=== PATIENT | female | born 1980 | race Caucasian/White ===

== ENCOUNTER 2016-12-31 07:24 | Emergency (ER) | payer SELFPAY ==
[~2016-12-31] VITALS: Ht 160 cm; Wt 70.0 kg
[~2016-12-31 07:24] MED LIST: MELO15TA2 PO
[2016-12-31 07:25] VITALS: BP 121/89; PULSE 63; RESP 16; TEMP 97.6; O2SAT 99
--- NOTE | 2016-12-31 09:36 | PD ---
HPI . blood in urine x 2 weeks Chief Complaint: Complaint Time Seen by Provider: 09:33 Travel History International Travel<30 days: No Contact w/Intl Traveler<30days: No Traveled to known affect area: No History of Present Illness HPI 36 yr old female with anxiety, depression and TIA last year here with c/o seeing blood in her urine and in her panty for 2 weeks. States they are small droplets and bright red in color. She admits to some RLQ pain described as sharp and stabbing rated 7/10. She has tried warm tea and it does make it better. She states the pressure goes away. She has not taken OTC NSAIDs. She also admits to some back pain that has been longstanding. She has more pain on her right side. She has some urinary frequency with dribbling, but denies any dysuria. Denies any change of as she states "I had my tubes tied and burned." She takes some medicine for depression but uncertain of the name. Past records reviewed and drug cannot be found. PFSH Past Medical History Blood Disorders: No Anxiety: Yes Depression: No Cancer: No Cardiovascular Problems: No Chemotherapy: No Cerebrovascular Accident: Yes (TIA) Diminished Hearing: No Endocrine: No Gastrointestinal Disorders: No Genitourinary: No Immune Disorder: No Musculoskeletal: No Neurologic: No Psychiatric: Yes (HX OF OD) Reproductive: No Respiratory: No Radiation Therapy: No ?: Unknown LMP: 11/30/16 Tubal Ligation: Yes Past Surgical History Abdominal Surgery: Yes (2 HERNIAS, GALLBLADDER) AICD: No Arteriovenous Shunt: No Cardiac Surgery: No Section: Yes (2001, 2003) Cholecystectomy: Yes (2003) Ear Surgery: No Endocrine Surgery: No Eye Surgery: No Genitourinary Surgery: Yes (BILATERAL IHR AGE 3, AGE 10) Gynecologic Surgery: Yes (2 C-SECTIONS) Insulin Pump: No Joint Replacement: No Oral Surgery: No Pacemaker: No Thoracic Surgery: No Other Surgery: Yes (2 HERNIA, 2 C-SECTIONS, GALLBLADDER) Social History Alcohol Use: No (PT DENIES USE TODAY) Tobacco Use: No Substance Use: No Allergies-Medications (Allergen,Severity, Reaction): Coded Allergies: No Known Allergies (Verified , 11/04/13) Reported Meds & Prescriptions Reported Meds & Active Scripts Active Flexeril (Cyclobenzaprine HCl) 5 Mg Tab 5 Mg PO BID PRN Mobic (Meloxicam) 15 Mg Tab 15 Mg PO DAILY Review of Systems General / Constitutional: No: Fever Eyes: No: Visual changes HENT: No: Headaches Cardiovascular: No: Chest Pain or Discomfort Respiratory: No: Shortness of Breath Gastrointestinal: Positive: Abdominal Pain (RLQ) Genitourinary: Positive: Frequency, Hematuria, Dribbling, No: Dysuria Musculoskeletal: No: Pain Skin: No Rash Neurologic: No: Weakness Psychiatric: No: Depression Endocrine: No: Polydipsia Hematologic/Lymphatic: No: Easy Bruising Physical Exam Narrative Physical Exam General :AAO x 3, NAD, comfortable without any signs of distress Head: normocephalic atraumatic. Ears: Normal pinna, no deformities Eyes: EOM intact, clear fundi, no icterus Throat: moist mucous membranes, tongue piercing in place Neck: Supple, no lymphadenopathy RESP: CTAB, no rales, rhonchi CARDIAC: s1 and s2, no rubs, murmur or gallops Abd: soft, NT, ND, normoactive bowel sounds, NO CVA tenderness BACK: Mild right side paraspinal muscular tenderness. Ext: no edema or cyanosis neuro: grossly intact psych: AAO x 3, normal affect Data Data Last Documented VS Vital Signs Date Time Temp Pulse Resp B/P Pulse Ox O2 Delivery O2 Flow Rate FiO2 12/31/16 07:25 97.6 63 16 121/89 99 Room Air Orders Urinalysis - C+S If Indicated (12/31/16 08:24) Ed Urine Pregnancytest Poc (12/31/16 08:34) Mandatory Outpatient Referral (12/31/16 10:10) Labs Laboratory Tests Test 12/31/16 08:35 Urine Color YELLOW Urine Turbidity CLEAR Urine pH 7.5 Urine Specific [place] 1.021 Urine Protein TRACE mg/dL Urine Glucose (UA) NEG mg/dL Urine Ketones NEG mg/dL Urine Occult Blood NEG Urine Nitrite NEG Urine Bilirubin NEG Urine Urobilinogen 2.0 MG/DL Urine Leukocyte Esterase NEG Urine WBC 1 /hpf Urine Squamous Epithelial 1 /hpf Cells Urine Mucus FEW /lpf Microscopic Urinalysis Comment CULT NOT INDICATED MDM Medical Decision Making Medical Screen Exam Complete: Yes Emergency Medical Condition: Yes Medical Record Reviewed: Yes Differential Diagnosis UTI, muscle strain, muscle spasm, vaginal bleeding Narrative Course 36 yr old female with anxiety, depression and TIA last year here with c/o seeing blood in her urine and in her panty for 2 weeks. States they are small droplets and bright red in color. She admits to some RLQ pain described as sharp and stabbing rated 7/10. She has tried warm tea and it does make it better. She states the pressure goes away. She has not taken OTC NSAIDs. She also admits to some back pain that has been longstanding. She has more pain on her right side. She has some urinary frequency with dribbling, but denies any dysuria. She takes some medicine for depression but uncertain of the name. Past records reviewed and drug cannot be found. Patient seen and examined. Discussed with Dr. Lynch. UA clear Exam essentially benign except for paraspinal muscle tenderness. Flexeril upon discharge Discussed with patient. Mandatory referral to breast navigator. Patient verbalized understanding of instructions. She thanked me for her care. Diagnosis Primary Impression: Muscle strain Patient Instructions: Acute Low Back Pain (ED), General Instructions Med/Other Pt SpecificInfo: Prescription(s) given Scripts Cyclobenzaprine (Flexeril)5 Mg Tab5 Mg PO BID PRN (BACK PAIN) #30 TAB Ref 0 Prov:Faby Martinez 12/31/16 Disposition: 01 DISCHARGE HOME Condition: Stable Faby Martinez Dec 31, 2016 09:36
[2016-12-31 09:52] LABS: BLOOD, URINE NEG (NEG); COMMENT (UR) CULT NOT INDICATED; CULTURE IF INDICATED CULT NOT INDICATED; GLUCOSE,URINE NEG (NEG); KETONE, URINE NEG (NEG); MUCUS URINE FEW /lpf (OCC); NITRITE,URINE NEG (NEG); PH, URINE 7.5 (5.0-8.5); SQUAMOUS EPITHELIAL CELL URINE 1 /hpf (0-5); URINE COLOR YELLOW (YELLW/STRAW)
[2016-12-31] MEDS ORDERED: CYCL5TAB PO (10:13)
--- NOTE | 2016-12-31 10:13 | PD ---
Data Data Last Documented VS Vital Signs Date Time Temp Pulse Resp B/P Pulse Ox O2 Delivery O2 Flow Rate FiO2 12/31/16 07:25 97.6 63 16 121/89 99 Room Air Orders Urinalysis - C+S If Indicated (12/31/16 08:24) Ed Urine Pregnancytest Poc (12/31/16 08:34) Labs Laboratory Tests Test 12/31/16 08:35 Urine Color YELLOW Urine Turbidity CLEAR Urine pH 7.5 Urine Specific [place] 1.021 Urine Protein TRACE mg/dL Urine Glucose (UA) NEG mg/dL Urine Ketones NEG mg/dL Urine Occult Blood NEG Urine Nitrite NEG Urine Bilirubin NEG Urine Urobilinogen 2.0 MG/DL Urine Leukocyte Esterase NEG Urine WBC 1 /hpf Urine Squamous Epithelial 1 /hpf Cells Urine Mucus FEW /lpf Microscopic Urinalysis Comment CULT NOT INDICATED MDM Supervised Visit with ELIZ: Yes Narrative Course I, Dr. Lynch, have reviewed the advance practice practioner's documentation and am in agreement, met with the patient face to face, made the diagnosis, and the medical decision making was done by me. *My assessment and Findings: 36-year-old female here with complaint of hematuria for the last 2 weeks intermittently, small droplets of blood. This has since resolved and she has not seen any hematuria today. She notes some urinary frequency but denies any other symptoms. She has chronic low back pain , this is not any worse. Denies any nausea, vomiting. Her abdominal examination is benign. Differential includes cystitis, UTI, ureterolithiasis, vaginal bleeding. Her urinalysis was negative. Last menstrual period was 3 weeks ago and she does not believe she could be . Patient was reassured. She has multiple other complaints including a concern for breast lump, chronic low back pain, etc. She does not have health insurance but will be getting health insurance in approximately one month. She was given outpatient mandatory referral for breast and alligator. Diagnosis Primary Impression: Muscle strain Ruled Out: Asia Shannon MD Dec 31, 2016 10:13
== END 2016-12-31 10:33 | disposition home or self-care (01) ==
LOC: NETRI 07:24
DX: T14.8 Other injury of unspecified body region (principal); X50.9XXA Other and unspecified overexertion or strenuous movements or postures, initial encounter
CPT/HCPCS: 81001; 84703; 99283